=== PATIENT | female | born 1985 | race Asian ===

== ENCOUNTER 2020-07-11 15:53 | Emergency (ER) | payer OTHER ==
[2020-07-11 16:07] VITALS: BP 131/93; PULSE 104; TEMP 99.9; BMI 31.2
[2020-07-11] MEDS ORDERED: METOCLOPRAMIDE HCL INJECTION 10 MG/2 ML VIAL IM ONE (16:30)
[2020-07-11] MEDS ORDERED: diphenhydrAMINE HCL 25 MG CAPSULE (FP) PO ONE (16:30)
[2020-07-11] MEDS ORDERED: LACTATED RINGERS SOLUTION 1000 ML INFUS.BAG IV ONE (17:13)
[2020-07-11] MEDS ORDERED: ACETAMINOPHEN 1000 MG/100 ML VIAL (NON FORMULARY) IVPB ONE (17:14)
[2020-07-11] MEDS ORDERED: ACETAMINOPHEN INJECTION 100 ML IVPB ONE (18:01)
[2020-07-11 18:41] LABS: ALBUMIN 3.6 g/dl (3.4-5.0); BILIRUBIN,TOTAL 0.1 mg/dl (0.2-1); CALCIUM 8.5 mg/dl (8.5-10); CREATININE 0.7 mg/dl (0.55-1.3); POTASSIUM 3.6 mmol/L (3.5-5.1)
[2020-07-11 19:57] LABS: BASO % 0.7 % (0-2.0); HEMATOCRIT 35.6 % (32.4-45.2); HEMOGLOBIN 11.4 GM/dL (10.7-15.3); LYMPH % 37.5 % (8-40); MCH 24.3 pg (25.7-33.7); MEAN CELL VOLUME 75.9 fl (80-96); MEAN PLT VOLUME 8.7 fl (7.5-11.1); MONO % 12.6 % (3.8-10.2); NEUT % 49.2 % (42.8-82.8); PLATELET COUNT 400 K/MM3 (134-434); RBC 4.69 M/mm3 (3.60-5.2); WHITE BLOOD COUNT 8.5 K/mm3 (4.0-10.0)
== END 2020-07-11 20:06 | disposition home or self-care (01) ==
LOC: FER 15:53
PROC: 3E033NZ Introduction of Analgesics, Hypnotics, Sedatives into Peripheral Vein, Percutaneous Approach (ICD-10-PCS; principal; 2020-07-11)
PROC: 3E033GC Introduction of Other Therapeutic Substance into Peripheral Vein, Percutaneous Approach (ICD-10-PCS; 2020-07-11)
DX: R11.0 Nausea (principal); R53.83 Other fatigue
CPT/HCPCS: 36415; 71046-TC-FY; 80053; 84703; 85025; 87804; 99285-25; J0131

== ENCOUNTER 2021-06-09 13:50 | Emergency (ER) | payer OTHER ==
[2021-06-09 14:16] VITALS: BMI 34.0
[2021-06-09] MEDS ORDERED: ACETAMINOPHEN 500 MG TABLET (FP) PO ONE (14:26)
[2021-06-09] MEDS ORDERED: ACETAMINOPHEN 500 MG TABLET (FP) ONE (14:39)
[2021-06-09 14:54] LABS: MEAN PLT VOLUME 8.8 fl (7.5-11.1); PLATELET COUNT 444 10^3/uL (134-434)
[2021-06-09 14:56] LABS: HEMATOCRIT 33.3 % (32.4-45.2); HEMOGLOBIN 11.1 GM/dl (10.7-15.3); MCHC 33.4 g/dl (32.0-36.0); MEAN CELL VOLUME 74.9 fl (80-96); RBC 4.45 M/mm3 (3.60-5.2); RDW 16.5 % (11.6-15.6); WHITE BLOOD COUNT 18.1 K/mm3 (4.0-10.8)
[2021-06-09 15:02] LABS: ALBUMIN 3.6 g/dl (3.4-5.0); BILIRUBIN,TOTAL 0.4 mg/dl (0.2-1); CALCIUM 8.6 mg/dl (8.5-10); CREATININE 0.6 mg/dl (0.55-1.3); TOT PROT 7.7 g/dl (6.4-8.2)
[2021-06-09] MEDS ORDERED: PENICILLIN V POTASSIUM 500 MG TABLET PO ONE (17:48)
[2021-06-09 17:58] VITALS: BP 121/64; PULSE 86; TEMP 98.7
[2021-06-09 19:26] LABS: ANISOCYTOSIS 1+; PLATELET ESTIMATE SLT INCREASE
== END 2021-06-09 18:02 | disposition home or self-care (01) ==
LOC: FER 13:50
DX: J02.0 Streptococcal pharyngitis (principal)
CPT/HCPCS: 36415; 80053; 85025; 87651; 93005; 99284-25; C9803; U0003; U0005

== ENCOUNTER 2023-05-17 12:00 | Emergency (ER) | payer OTHER ==
[2023-05-17 12:22] VITALS: BP 138/80; PULSE 85; RESP 16; TEMP 98.6; BMI 25.7
[2023-05-17] MEDS ORDERED: ACETAMINOPHEN 325 MG TABLET (FP) PO ONE (12:25)
[2023-05-17] MEDS ORDERED: ACETAMINOPHEN 325 MG TABLET (FP) ONE (12:35)
[2023-05-17] MEDS ORDERED: PHENAZOPYRIDINE HCL 100 MG TABLET (FP) PO ONE (13:10)
[2023-05-17] MEDS ORDERED: KETOROLAC TROMETHAMINE 30 MG/1 ML VIAL IM ONE (13:10)
[2023-05-17 13:13] LABS: HEMATOCRIT 29.8 % (32.4-45.2); HEMOGLOBIN 9.5 G/dL (10.7-15.3); MCH 22.7 pg (25.7-33.7); MCHC 31.8 g/dl (32.0-36.0); MEAN CELL VOLUME 71.3 fl (80-96); MEAN PLT VOLUME 8.8 fl (7.5-11.1); PLATELET COUNT 520.5 10^3/uL (134-434); RBC 4.18 10^6/uL (3.60-5.2); RDW 19.6 % (11.6-15.6); WHITE BLOOD COUNT 15.2 10^3/uL (4.0-10.8)
[2023-05-17 13:14] LABS: ALBUMIN 3.9 g/dl (3.4-5.0); BILIRUBIN,TOTAL 0.3 mg/dl (0.2-1); BLOOD UREA NITROGEN 10.3 mg/dl (7-18); CALCIUM 9.2 mg/dl (8.5-10.1); CREATININE 0.5 mg/dl (0.6-1.3); POTASSIUM 3.7 mmol/L (3.5-5.1); SGOT/AST 9.6 U/L (15-37); SGPT/ALT 11.9 U/L (7-52); TOT PROT 7.3 g/dl (6.4-8.2)
[2023-05-17] MEDS ORDERED: PHENAZOPYRIDINE HCL 100 MG TABLET (FP) ONE (13:16)
[2023-05-17] MEDS ORDERED: KETOROLAC TROMETHAMINE 30 MG/1 ML VIAL ONE (13:16)
[2023-05-17 13:59] LABS: EPITHELIAL CELLS FEW /hpf
[2023-05-17] MEDS ORDERED: CEPHALEXIN MONOHYDRATE 500 MG CAPSULE (UD) PO ONE (14:02)
[2023-05-17 14:16] LABS: PLATELET ESTIMATE INCREASED
[2023-05-17] MEDS ORDERED: CEPHALEXIN MONOHYDRATE 500 MG CAPSULE (UD) ONE (14:23)
== END 2023-05-17 14:30 | disposition home or self-care (01) ==
LOC: FER 12:00
PROC: 3E0233Z Introduction of Anti-inflammatory into Muscle, Percutaneous Approach (ICD-10-PCS; principal; 2023-05-17)
DX: R10.31 Right lower quadrant pain (principal); R11.0 Nausea; N39.0 Urinary tract infection, site not specified; R35.0 Frequency of micturition
CPT/HCPCS: 36415; 80053; 81003; 81015; 83690; 84703; 85027; 87086; 87186; 99284-25

== ENCOUNTER 2024-04-15 11:27 | Emergency (ER) | payer OTHER ==
[2024-04-15 11:38] VITALS: BP 115/80; PULSE 91; RESP 20; BMI 28.3
[2024-04-15] MEDS ORDERED: ACETAMINOPHEN 325 MG TABLET (FP) ONE (11:54)
[2024-04-15] MEDS ORDERED: DEXAMETHASONE SOD PHOSPHATE 10 MG/1 ML VIAL ONE (11:54)
[2024-04-15] MEDS: DEXAMETHASONE LIQUID 0.5 MG/5 ML PO ONE (12:01)
[2024-04-15] MEDS: ACETAMINOPHEN 325 MG TABLET (FP) PO ONE (12:01)
[2024-04-15 13:19] VITALS: TEMP 99.3
[2024-04-15 13:32] LABS: THROAT:GRP A STREP NOT DETECTED (NOTDETECTED)
== END 2024-04-15 13:18 | disposition home or self-care (01) ==
LOC: FER 11:27
DX: U07.1 COVID-19 (principal); J02.9 Acute pharyngitis, unspecified; R05.9 Cough, unspecified; R09.81 Nasal congestion; R51.9 Headache, unspecified; M79.10 Myalgia, unspecified site
CPT/HCPCS: 0241U-QW; 87651; 99283-25